=== PATIENT | female | born 1955 ===

== ENCOUNTER 2017-09-04 23:10 | Emergency (ER) | payer BC, OTHER ==
[2017-09-04 23:25] VITALS: RESP 16
--- NOTE | 2017-09-04 23:42 | C.PDOC ---
History Of Present Illness pt ate some fish and felt a bone in her throat left side, below the larynx. speaking in complete sentences, tolerating po. no drooling.Ate some bread, rice , but still feels the "bone" Time Seen by Provider: 09/04/17 23:42 Chief Complaint (Nursing): Foreign Body History Per: Patient History/Exam Limitations: None Onset/Duration Of Symptoms: Hrs Current Symptoms Are (Timing): Still Present Quality (Mouth/Throat): Other (fish bone) Symptoms Have Been: Continuous Severity: Moderate Pain Scale Rating Of: 4 Anticoagulant/Antiplatlet Use?: No Recent Aspirin Use: No Past Medical History Reviewed: Historical Data, Nursing Documentation, Vital Signs Vital Signs: Last Vital Signs Temp 98.6 F 09/04/17 23:19 Pulse 80 09/04/17 23:19 Resp 16 09/04/17 23:19 BP 169/82 H 09/04/17 23:19 Pulse Ox 92 L 09/05/17 00:54 - Medical History PMH: HTN Surgical History: Pacemaker (2002) - [facility] Procedures APPLICATION OF SPLINT (09/27/14) TETANUS TOXOID ADMINIST (09/27/14) Family History: States: No Known Family Hx - Social History Hx Tobacco Use: No Hx Alcohol Use: No Hx Substance Use: No - Immunization History Hx Tetanus Toxoid Vaccination: No Hx Influenza Vaccination: Yes Hx Pneumococcal Vaccination: No Physical Exam - Physical Exam Appears: Non-toxic, No Acute Distress Oral Mucosa: Moist Tongue: Normal Appearing Throat: No Erythema, No Exudate, No Drooling, Other (no f.o. visualized) Neck: Trachea Midline, Supple Respiratory: No Rales, No Rhonchi, No Wheezing ED Course And Treatment O2 Sat by Pulse Oximetry: 92 Pulse Ox Interpretation: Normal Reevaluation Time: 01:42 Reassessment Condition: Improved Disposition Counseled Patient/Family Regarding: Studies Performed, Diagnosis, Need For Followup - Disposition Referrals: Philippe Garcia MD [Staff Provider] - Disposition: HOME/ ROUTINE Disposition Time: 23:42 Condition: FAIR Instructions: Foreign Body Ingestion (ED) Forms: Couple (Mauritanian) - Clinical Impression Clinical Impression: Throat pain
--- NOTE | 2017-09-05 01:36 | CT ---
EXAM: CT Neck Without Intravenous Contrast CLINICAL HISTORY: 61 years old, female; Pain; Neck pain and other: Fish bone left side TECHNIQUE: Axial computed tomography images of the neck without intravenous contrast. All CT scans at this facility use one or more dose reduction techniques, viz.: automated exposure control; ma/kV adjustment per patient size (including targeted exams where dose is matched to indication; i.e. head); or iterative reconstruction technique. 221 images are submitted. Coronal and sagittal reformatted images were created and reviewed. COMPARISON: No relevant prior studies available. FINDINGS: Nasopharynx: Unremarkable. Oropharynx: Unremarkable. No significant tonsillar enlargement. Hypopharynx: Unremarkable. Larynx: Unremarkable. Normal epiglottis. Trachea: Unremarkable. Retropharyngeal space: Unremarkable. Submandibular/parotid glands: Unremarkable. Glands are normal in size. Thyroid: Enlarged thyroid gland with tiny thyroid nodules. These are to small to characterize. Bones/joints: C2-C3:: There is posterior flowing osteophyte bridging C2 and C3 with mild spinal stenosis. No acute fracture. Soft tissues: There are sternal wires consistent with previous sternotomy incision. There is gaseous distention of the cervicothoracic esophagus. No radiopaque foreign body is identified. Vasculature: No acute findings. Lymph nodes: Unremarkable. No lymphadenopathy. Esophagus: Nonspecific gaseous distention of the cervicothoracic esophagus. Lung apices: Unremarkable. Tubes, lines and devices: There are cardiac leads from a cardiac rhythm maintenance device. IMPRESSION: No acute findings.
[2017-09-05 02:01] VITALS: BP 135/69; PULSE 86; TEMP 98; O2SAT 98
== END 2017-09-05 02:02 | disposition home or self-care (01) ==
LOC: C.ER 23:10
DX: R07.0 Pain in throat (principal)